=== PATIENT | male | born 1950 | race Caucasian/White ===

== ENCOUNTER 2016-08-20 18:33 | Inpatient (IN) | payer MEDICARE, OTHER ==
[~2016-08-20] VITALS: Ht 170.2 cm; Wt 124.8 kg
[~2016-08-20 18:33] MED LIST: ALBU6.7H INH; ASPI325T PO; DIPH2%T PO; LOPR50TA12 PO; TYLE3 PO; ZOCO40TA PO
[2016-08-20 18:34] VITALS: BP 144/77; PULSE 88; RESP 28; TEMP 102.1; O2SAT 95
[2016-08-20 20:01] VITALS: BP 133/65; PULSE 99; RESP 22; O2SAT 99
[2016-08-20] MEDS ORDERED: ZOCO40TA PO (20:03)
[2016-08-20] MEDS ORDERED: ALBU6.7H INH (20:03)
[2016-08-20] MEDS ORDERED: ASPI81CH CHEW (20:03)
[2016-08-20] MEDS ORDERED: cefTRIAXone INJ 2,000 MG in SODIUM CHLORIDE 0.9% INJ 100 ML IV STA (20:24)
[2016-08-20] MEDS ORDERED: AZITHROMYCIN INJ 500 MG in SODIUM CHLOR 0.9% 250 ML INJ 250 ML IV STA (20:24)
[2016-08-20] MEDS ORDERED: methylPREDNISolone SOD SUCC 125 MG/2 ML VIAL IV PUSH ONE (20:30)
[2016-08-20] MEDS ORDERED: SODIUM CHLOR 0.9% 1000 ML INJ 1,000 ML IV ONE (20:30)
[2016-08-20] MEDS ORDERED: ONDANSETRON HCL 4 MG/2 ML VIAL IV ONE (20:30)
[2016-08-20] MEDS ORDERED: ACETAMINOPHEN 325 MG TAB PO ONE (20:30)
--- NOTE | 2016-08-20 20:34 | PD ---
HPI Chief Complaint: Cold / Flu Symptoms Time Seen by Provider: 20:14 Travel History International Travel<30 days: No Contact w/Intl Traveler<30days: No Traveled to known affect area: No History of Present Illness HPI The patient is a 65 year old male who presents to the [facility] emergency department with a history of cough, congestion, frontal sinus pressure, sore throat, clear rhinorrhea that began yesterday. His symptoms rapidly evolved and worsened today. He reports that he began to feel short of breath. He does have a known history of COPD, however he has not used his rescue inhaler. The patient arrives with a fever with a MAXIMUM TEMPERATURE of 102.2. He reports he has had posttussive emesis approximately 6 times. He denies having any diarrhea. He denies having any nausea. He reports that he last moved his bowels yesterday. He reports that he quit smoking 30 years ago. The patient reports that he did receive his influenza vaccination and pneumonia vaccinations this year. He is followed for his primary care by the [facility]. He denies having any chest pain, however he does report having chest tightness with trying to take a deep breath. He denies having any abdominal pain. The patient on review of systems denies having any urinary symptoms or neurologic symptoms. [facility] Past Medical History Narrative Medical The patient's past medical history is significant for hyperlipidemia, COPD, history of chronic left foot pain, history of kidney stones. Heart Rhythm Problems: No Cardiac Catheterization: No Cardiovascular Problems: Yes (CURRENT CP) High Cholesterol: Yes Congestive Heart Failure: No Diabetes: No Kidney Stones: Yes Sleep Apnea: Yes (cpap) Past Surgical History Narrative Surgical The patient's past surgical history is significant for left foot surgery, kidney stone removal. Coronary Artery Bypass Graft: No Genitourinary Surgery: Yes (KIDNEY STONE REMOVED) Family History Family Myocardial Infarction: Yes (BROTHER) Social History Alcohol Use: No Tobacco Use: No (quit 30 years ago) Substance Use: No Allergies-Medications (Allergen,Severity, Reaction): Coded Allergies: Imodium (Verified Allergy, Unknown, 08/20/16) Reported Meds & Prescriptions Reported Meds & Active Scripts Active Reported Aspirin 81 Mg Chew 81 Mg CHEW DAILY Review of Systems Except as stated in HPI: all other systems reviewed are Neg General / Constitutional: Positive: Fever Eyes: No: Visual changes HENT: Positive: Headaches (over frontal sinus), Sore Throat, Rhinorrhea, Congestion, No: Neck Stiffness, Neck Pain Cardiovascular: Positive: Chest Pain or Discomfort (chest tightness), Dyspnea on exertion Respiratory: Positive: Cough, Shortness of Breath, Wheezing, Sneezing Gastrointestinal: Positive: Vomiting (posttussive emesis), No: Nausea, Diarrhea, Abdominal Pain, Hematemesis, Hematochezia, Constipation, Changes in Bowel Habits, Indigestion, Loss of Appetite Genitourinary: No: Dysuria Musculoskeletal: No: Pain Skin: No Rash Neurologic: No: Weakness, Focal Abnormalities, Change in Mentation, Slurred Speech, Sensory Disturbance Psychiatric: No: Depression, Mood Disorder Endocrine: No: Polydipsia Hematologic/Lymphatic: No: Easy Bruising Physical Exam Narrative General: The patient is a well-developed well-nourished male in no acute distress. Head and Neck exam: Head is normocephalic atraumatic. Eyes: EOMI, pupils are equal round and reactive to light. Nose: Midline septum with pink mucous membranes Mouth: Dentition unremarkable. Moist mucus membranes. Posterior oropharynx is erythematous. With uvula swelling noted, erythema. No exudate. No tonsillar hypertrophy. Uvula midline. Airway patent. Neck: No palpable lymphadenopathy. No nuchal rigidity. No thyromegaly. Cardiovascular: Regular rate and rhythm without murmurs, gallops, or rubs. Lungs: The patient has soft expiratory wheezes audible. The patient has scattered rhonchi with frequent productive sounding coughs. The patient's sputum at the bedside is noted to be clear to yellow. The patient has no accessory muscle use noted. No paroxysmal abdominal breathing. No tripoding. Abdomen: Soft, without tenderness to palpation in all 4 quadrants of the abdomen. No guarding, rebound, or rigidity. Normal bowel sounds are audible. No tenderness on palpation of McBurney's point. Extremities: No clubbing, cyanosis, or edema. 2+ pulses in all 4 extremities. No calf tenderness on palpation. Back: No costovertebral angle tenderness to palpation. Neurologic Exam: Grossly nonfocal. Skin Exam: No rash noted. Intact skin that is warm and dry. Data Data Last Documented VS Vital Signs Date Time Temp Pulse Resp B/P Pulse Ox O2 Delivery O2 Flow Rate FiO2 08/20/16 22:30 98.6 77 18 144/66 96 Nasal Cannula 2 Orders Electrocardiogram (08/20/16 20:24) Complete Blood Count With Diff (08/20/16 20:24) Comprehensive Metabolic Panel (08/20/16 20:24) Lactic Acid Sepsis Protocol (08/20/16 20:24) Lipase (08/20/16 20:24) Ckmb (Isoenzyme) Profile (08/20/16 20:24) Troponin I (08/20/16 20:24) Urinalysis - C+S If Indicated (08/20/16 20:24) Influenzae A/B Antigen (08/20/16 20:24) Blood Culture (08/20/16 20:24) Chest, Single Ap (08/20/16 20:24) Blood Glucose (08/20/16 20:24) Ecg Monitoring (08/20/16 20:24) Iv Access Insert/Monitor (08/20/16 20:24) Oximetry (08/20/16 20:24) Oxygen Administration (08/20/16 20:24) Ceftriaxone Inj (Rocephin Inj) (08/20/16 20:24) Azithromycin Inj (Zithromax Inj) (08/20/16 20:24) Sodium Chlor 0.9% 1000 Ml Inj (Ns 1000 M (08/20/16 20:30) Ondansetron Inj (Zofran Inj) (08/20/16 20:30) Methylprednisolone So Succ Inj (Solumedr (08/20/16 20:30) Albuterol-Ipratropium Neb (Duoneb Neb) (08/20/16 20:30) Group A Rapid Strep Screen (08/20/16 20:24) B-Type Natriuretic Peptide (08/20/16 20:24) C-Reactive Protein (Crp) (08/20/16 20:24) Acetaminophen (Tylenol) (08/20/16 20:30) Ct Soft Tiss Neck W Iv Cont (08/20/16 ) Iohexol 350 Inj (Omnipaque 350 Inj) (08/20/16 22:43) Admit Order (Ed Use Only) (08/20/16 22:50) Labs Laboratory Tests Test 08/20/16 5 20:25 20:36 White Blood Count 11.4 TH/MM3 Red Blood Count 4.81 MIL/MM3 Hemoglobin 14.7 GM/DL Hematocrit 42.9 % Mean Corpuscular Volume 89.3 FL Mean Corpuscular Hemoglobin 30.5 PG Mean Corpuscular Hemoglobin 34.1 % Concent Red Cell Distribution Width 13.5 % Platelet Count 135 TH/MM3 Mean Platelet Volume 8.7 FL Neutrophils (%) (Auto) 74.2 % Lymphocytes (%) (Auto) 12.5 % Monocytes (%) (Auto) 12.2 % Eosinophils (%) (Auto) 0.7 % Basophils (%) (Auto) 0.4 % Neutrophils # (Auto) 8.5 TH/MM3 Lymphocytes # (Auto) 1.4 TH/MM3 Monocytes # (Auto) 1.4 TH/MM3 Eosinophils # (Auto) 0.1 TH/MM3 Basophils # (Auto) 0.0 TH/MM3 CBC Comment DIFF FINAL Differential Comment Sodium Level 136 MEQ/L Potassium Level 3.9 MEQ/L Chloride Level 102 MEQ/L Carbon Dioxide Level 25.9 MEQ/L Anion Gap 8 MEQ/L Blood Urea Nitrogen 13 MG/DL Creatinine 1.27 MG/DL Estimat Glomerular Filtration 57 ML/MIN Rate Random Glucose 109 MG/DL Calcium Level 9.2 MG/DL Total Bilirubin 1.1 MG/DL Aspartate Amino Transf 18 U/L (AST/SGOT) Alanine Aminotransferase 29 U/L (ALT/SGPT) Alkaline Phosphatase 69 U/L Total Creatine Kinase 91 U/L Troponin I LESS THAN 0.02 NG/ML C-Reactive Protein 5.60 MG/DL B-Type Natriuretic Peptide 39 PG/ML Total Protein 7.9 GM/DL Albumin 4.2 GM/DL Lipase 83 U/L Lactic Acid Level 1.1 mmol/L MDM Medical Decision Making Medical Screen Exam Complete: Yes Emergency Medical Condition: Yes Medical Record Reviewed: Yes Interpretation(s) Last Impressions Chest X-Ray 08/20/162023 Signed Impressions: Service Date/Time: Saturday, August 20, 2016 20:46 - CONCLUSION: Bibasilar atelectasis. Conner Crump MD Neck CT 08/20/16 0000 Signed Impressions: Service Date/Time: Saturday, August 20, 2016 22:40 - CONCLUSION: There is soft tissue prominence and thickening of the subglottic trachea and aryepiglottic folds. No abscess. Conner Crump MD Differential Diagnosis Uvulitis, versus bronchitis, versus COPD exacerbation, versus pneumonia, versus sepsis Narrative Course During the course of the patients emergency department visit, the patients history, examination, and differential diagnosis were reviewed with the patient. The patient had IV access obtained and blood work sent for analysis. The patient was placed on a therapeutic recreation assistant with oximetry and blood pressure monitoring. An EKG was ordered. Blood cultures 2 were ordered, rapid strep was ordered. The patient had an EKG done on arrival that shows a sinus rhythm heart rate is 70, nonspecific T-wave abnormalities. T waves are inverted in V1 , V3, no acute ST segment elevation, T waves inverted in lead 3. QRS duration is 126 ms, QTC 406 ms. The patient was initially provided normal saline 1 L IV fluid bolus, Zofran 4 mg IV, Rocephin 2 g IV, Zithromax 500 IV. DuoNeb 2 will be administered. The patient will be given Solu-Medrol 125 mg IV. The patients laboratory studies were reviewed and remarkable for a white count 11.4, hemoglobin 14.7, platelets 135 neutrophils 74.2, monocytes 12.2, CMP is remarkable for glucose of 109, total bilirubin 1.1, CPK 91, troponin I less than 0.02, C-reactive protein 5.60, lipase 83, BNP is 39, lactic acid 1.1 Radiology studies were reviewed and remarkable for bibasilar atelectasis. CT of the soft tissues of the neck showed a soft tissue prominence and thickening of the subglottic trachea and area epiglottic folds, no abscesses. The patient on reexamination reports that he still is experiencing some shortness of breath. The patient continues to have a productive sounding cough with scattered rhonchi. The patient will be admitted to the hospital for continued IV fluids, IV steroids, nebulizer treatments every 4-6 hours. The patients results were discussed with the patient, including the plan of care. I explained that further testing and/ or monitoring is indicated based on the patients history, examination, and/ or laboratory findings. Therefore, I recommended admission for additional evaluation. The patient expressed understanding and was agreeable with this plan. The patient was admitted to the hospital in stable condition and sent to a bed under the care of the [facility] Hospitalist service. Physician Communication Physician Communication The patient's case will be discussed with Dr. Dietz regarding admission. The patient's case was discussed with her. She did agree to admit the patient for further evaluation and treatment at this time. Diagnosis Primary Impression: COPD exacerbation Additional Impressions: Uvular swelling Uvulitis Admitting Information Admitting Physician Requests: Marie Prasad MD August 20, 2016 20:34
[2016-08-20 20:35] VITALS: O2SAT 96
[2016-08-20] MEDS: RESP: ALBUTEROL 2.5 MG/IPRATROPIUM 0.5 MG NEB (SCH) INH ×2 (20:35→20:36)
[2016-08-20 20:40] VITALS: O2SAT 96
--- NOTE | 2016-08-20 20:51 | RADRPT ---
EXAM DATE/TIME: 08/20/2016 20:46 [facility] COMPARISON: CHEST SINGLE AP, May 11, 2014, 15:12. INDICATIONS : Short of breath. MEDICAL HISTORY : None. SURGICAL HISTORY : None. ENCOUNTER: Initial ACUITY: 2 days PAIN SCORE: 0/10 LOCATION: Bilateral chest FINDINGS: A single view of the chest demonstrates diminished lung volumes and bibasilar atelectasis. Heart norm al in size. Osseous structures are intact. CONCLUSION: Bibasilar atelectasis. Conner Crump MD on August 20, 2016 at 20:49 Board Certified Radiologist. This report was verified electronically.
[2016-08-20 20:57] LABS: AUTOMATED NEUTROPHIL # 8.5 TH/MM3 (1.8-7.7); BASOPHIL % 0.4 % (0.0-2.0); EOSINOPHIL # 0.1 TH/MM3 (0-0.4); EOSINOPHIL % 0.7 % (0.0-4.0); HEMATOCRIT 42.9 % (39.0-51.0); HEMO FLAGS DIFF FINAL; LYMPH % 12.5 % (9.0-44.0); LYMPHOCYTE # 1.4 TH/MM3 (1.0-4.8); MEAN CELL VOLUME 89.3 FL (80.0-100.0); MEAN CORPUSCULAR HEMOGLOBIN 30.5 PG (27.0-34.0); MEAN CORPUSCULAR HGB CONC 34.1 % (32.0-36.0); MONO % 12.2 % (0.0-8.0); NEUT % 74.2 % (16.0-70.0); PLATELET COUNT 135 TH/MM3 (150-450); RED BLOOD COUNT 4.81 MIL/MM3 (4.50-5.90); RED CELL DISTRIBUTION WIDTH 13.5 % (11.6-17.2); WHITE BLOOD COUNT 11.4 TH/MM3 (4.0-11.0)
[2016-08-20 21:18] LABS: ANION GAP 8 MEQ/L (5-15); AST (GOT) 18 U/L (15-37); BICARBONATE 25.9 MEQ/L (21.0-32.0); BLOOD UREA NITROGEN 13 MG/DL (7-18); CHLORIDE 102 MEQ/L (98-107); GLOMERULAR FILTRATION RATE 57 ML/MIN (>89); POTASSIUM 3.9 MEQ/L (3.5-5.1); SODIUM (NA) 136 MEQ/L (136-145)
[2016-08-20 21:23] LABS: ALKALINE PHOSPHATASE 69 U/L (45-117); ALT (GPT) 29 U/L (12-78); TOTAL BILIRUBIN ADULT 1.1 MG/DL (0.2-1.0)
[2016-08-20 21:31] LABS: CREATINE KINASE 91 U/L (39-308)
[2016-08-20 21:37] VITALS: BP 146/76; PULSE 90; RESP 16; O2SAT 97
[2016-08-20 22:30] VITALS: BP 144/66; PULSE 77; RESP 18; TEMP 98.6; O2SAT 96
[2016-08-20] MEDS ORDERED: IOHEXOL 350 MG/ML 10 ML VIAL (for RAD DIAG) IV ONE (22:43)
--- NOTE | 2016-08-20 23:05 | RADRPT ---
EXAM DATE/TIME: 08/20/2016 22:40 [facility] COMPARISON: No previous studies available for comparison. INDICATIONS : Swollen throat with fever. IV CONTRAST: 70 cc Omnipaque 350 (iohexol) IV RADIATION DOSE: 19.32 CTDIvol (mGy) MEDICAL HISTORY : Cardiovascular disease. Renal calculi. SURGICAL HISTORY : None. ENCOUNTER: Initial ACUITY: 1 day PAIN SCALE: 8/10 LOCATION: neck TECHNIQUE: Volumetric scanning of the neck was performed. Using automated exposure control and adjustment of th e mA and/or kV according to patient size, radiation dose was kept as low as reasonably achievable to obtain optimal diagnostic quality images. FINDINGS: NASOPHARYNX: The nasopharyngeal airway has a normal configuration. No mucosal thickening or mass is seen. OROPHARYNX: The intrinsic muscles of the tongue are symmetric. The tonsillar pillars are intact. The prevertebr al soft tissues are not thickened. LARYNX: There is soft tissue prominence and thickening of the subglottic trachea and aryepiglottic folds. No abscess. Prevertebral soft tissues are intact. PARAPHARYNGEAL: The parapharyngeal space is intact. SALIVARY GLANDS: The parotid and submandibular glands are intact. LYMPH NODES: No enlarged or necrotic-appearing nodes. THYROID: Homogeneous enhancement without evidence of nodule. BONES: Unremarkable. CONCLUSION: There is soft tissue prominence and thickening of the subglottic trachea and aryepiglottic folds. No abscess. Conner Crump MD on August 20, 2016 at 23:01 Board Certified Radiologist. This report was verified electronically.
[2016-08-21] VITALS (11 sets, daily range): BP systolic 114–151; BP diastolic 59–94; PULSE 68–88; RESP 17–20; TEMP 96.5–98.4; O2SAT 94–97
[2016-08-21] MEDS ORDERED: SODIUM CHLORIDE 0.9% FLUSH 10 ML FLUSH IV FLUSH PRN (00:30)
[2016-08-21] MEDS ORDERED: NALOXONE HCL 0.4 MG/ML AMP IV PRN (00:30)
[2016-08-21] MEDS ORDERED: RESP: ALBUTEROL 2.5 MG/IPRATROPIUM 0.5 MG NEB (PRN) NEB ×2 (00:30→14:15)
[2016-08-21 01:03] LABS: BLOOD, URINE NEG (NEG); GLUCOSE,URINE NEG (NEG); KETONE, URINE NEG (NEG); NITRITE,URINE NEG (NEG); PH, URINE 6.5 (5.0-8.5); URINE COLOR YELLOW (YELLW/STRAW)
[2016-08-21 01:05] LABS: COMMENT (UR) CATH-CULT NOT IND; CULTURE IF INDICATED CATH CULTURE NOT IND
[2016-08-21] MEDS: LEVOFLOXACIN 750 MG PREMIX INJ 150 ML IV SCH (01:47)
[2016-08-21] MEDS: RESP: ALBUTEROL 2.5 MG/IPRATROPIUM 0.5 MG NEB (SCH) NEB ×4 (02:53→21:31)
[2016-08-21] MEDS: SODIUM CHLORIDE 0.9% FLUSH 10 ML FLUSH IV FLUSH SCH ×2 (10:32→22:01)
[2016-08-21] MEDS: PANTOPRAZOLE SOD 40 MG DELAYED RELEASE TAB PO SCH (10:32)
--- NOTE | 2016-08-21 12:44 | HHI.HP ---
HPI Service [facility] Primary Care Physician [facility] Admission Diagnosis COPD exacerbation, bronchitis Diagnoses: Travel History International Travel<30 Days: No Contact w/Intl Traveler <30 Da: No Traveled to Known Affected Are: No Sepsis Criteria SIRS Criteria (2 or more): Temp > 100.9 or < 96.8, Heart rate over 90 Sepsis Criteria (SIRS+source): Infect source susp/known History of Present Illness 65-year-old male with past medical history of COPD and sleep apnea presented to the emergency room with complaint of very sore throat, wheezing, cough and phlegm since Saturday. Patient states that his had a sore throat since Saturday and was on antibiotics. He doesn't know which antibiotic she is taking. He states that his sore throat is so bad that time he drools all over and has trouble swallowing. He did have low-grade fever at home 100-101. He admits to chills but no nausea or vomiting, no burning with urination, no abdominal pain, he admits to wheezing and shortness of breath. He states that compared to yesterday he feels a little bit better but still feels sick. He tells me he uses a cane when ambulating long distances Review of Systems Except as stated in HPI: all other systems reviewed are Neg Past Family Social History Past Medical History COPD, sleep apnea Past Surgical History Fusion of the left foot, cyst removed on the left ankle, kidney stones Reported Medications Reported Meds & Active Scripts Active Reported Aspirin 81 Mg Chew 81 Mg CHEW DAILY Allergies: Coded Allergies: Imodium (Verified Allergy, Unknown, 08/20/16) *MDRO Multi-Drug Resistant Organism (Verified Adverse Reaction, Unknown, ) MRSA (wound)-03/13/10 Family History Mother of the stroke and father had throat cancer Social History Quit smoking in 1993. He started smoking in his 20s. He rarely drinks any alcohol about one beer a month. Denies any illegal drug use Physical Exam Vital Signs Vital Signs Date Time Temp Pulse Resp B/P Pulse Ox O2 Delivery O2 Flow Rate FiO2 08/21/16 12:00 96.5 71 18 114/59 95 08/21/16 09:01 97 Nasal Cannula 2.00 08/21/16 08:00 97.4 83 19 133/94 96 08/21/16 05:48 97.2 20 151/78 08/21/16 05:01 98.1 08/21/16 03:42 88 18 124/74 94 Nasal Cannula 2 08/21/16 00:36 71 18 138/68 97 Nasal Cannula 08/20/16 22:30 98.6 77 18 144/66 96 Nasal Cannula 2 08/20/16 21:37 90 16 146/76 97 Nasal Cannula 2 08/20/16 20:40 96 Nasal Cannula 2 08/20/16 20:40 96 Nasal Cannula 2 08/20/16 20:35 96 Nasal Cannula 2.00 08/20/16 20:01 99 22 133/65 99 Nasal Cannula 2 08/20/16 19:59 22 93 Nasal Cannula 08/20/16 18:34 102.1 88 28 144/77 95 Room Air Physical Exam GENERAL: This is a well-nourished, well-developed patient, in no apparent distress. Appears uncomfortable SKIN: No rashes, ecchymoses or lesions. Cool and dry. HEAD: Atraumatic. Normocephalic. No temporal or scalp tenderness. EYES: Pupils equal round and reactive. Extraocular motions intact. No scleral icterus. No injection or drainage. ENT: Nose without drainage. Throat petechia over the palate and some erythema noted.. Uvula midline. Airway patent. NECK: Trachea midline. No JVD or lymphadenopathy. Supple, nontender, no meningeal signs. CARDIOVASCULAR: Regular rate and rhythm without murmurs. RESPIRATORY: Expiratory wheezes auscultated. Crackles GASTROINTESTINAL: Abdomen soft, non-tender, nondistended. No guarding. MUSCULOSKELETAL: Extremities without edema. No calf tenderness. Negative Homans sign bilaterally. NEUROLOGICAL: Awake and alert. Cranial nerves II through XII intact. Motor and sensory grossly within normal limits. Five out of 5 muscle strength in all muscle groups. Normal speech. Laboratory Laboratory Tests Test 08/20/16 08/20/16 08/21/16 20:25 20:36 00:40 White Blood Count 11.4 Red Blood Count 4.81 Hemoglobin 14.7 Hematocrit 42.9 Mean Corpuscular Volume 89.3 Mean Corpuscular Hemoglobin 30.5 Mean Corpuscular Hemoglobin 34.1 Concent Red Cell Distribution Width 13.5 Platelet Count 135 Mean Platelet Volume 8.7 Neutrophils (%) (Auto) 74.2 Lymphocytes (%) (Auto) 12.5 Monocytes (%) (Auto) 12.2 Eosinophils (%) (Auto) 0.7 Basophils (%) (Auto) 0.4 Neutrophils # (Auto) 8.5 Lymphocytes # (Auto) 1.4 Monocytes # (Auto) 1.4 Eosinophils # (Auto) 0.1 Basophils # (Auto) 0.0 CBC Comment DIFF FINAL Differential Comment Sodium Level 136 Potassium Level 3.9 Chloride Level 102 Carbon Dioxide Level 25.9 Anion Gap 8 Blood Urea Nitrogen 13 Creatinine 1.27 Estimat Glomerular Filtration 57 Rate Random Glucose 109 Calcium Level 9.2 Total Bilirubin 1.1 Aspartate Amino Transf 18 (AST/SGOT) Alanine Aminotransferase 29 (ALT/SGPT) Alkaline Phosphatase 69 Total Creatine Kinase 91 Troponin I LESS THAN 0.02 C-Reactive Protein 5.60 B-Type Natriuretic Peptide 39 Total Protein 7.9 Albumin 4.2 Lipase 83 Lactic Acid Level 1.1 Urine Color YELLOW Urine Turbidity CLEAR Urine pH 6.5 Urine Specific [place] 1.014 Urine Protein NEG Urine Glucose (UA) NEG Urine Ketones NEG Urine Occult Blood NEG Urine Nitrite NEG Urine Bilirubin NEG Urine Urobilinogen LESS THAN 2.0 Urine Leukocyte Esterase NEG Urine RBC 2 Urine WBC 1 Microscopic Urinalysis Comment CATH-CULT NOT IND Date/Time Procedure Status Source Growth 08/20/16 20:36 Aerobic Blood Culture - Preliminary Resulted Blood Peripheral NO GROWTH IN 1 DAY 08/20/16 20:36 Anaerobic Blood Culture - Preliminary Resulted Blood Peripheral NO GROWTH IN 1 DAY 08/20/16 20:30 Influenza Types A,B Antigen (JOHANN) - Final Complete Nasal Aspirate NEGATIVE FOR FLU A AND B ANTIGEN.... 08/20/16 20:30 Group A Streptococcus Screen (JOHANN) - Final Complete Throat Pos For Grp A Strep Antigen Result Diagram: 08/20/16202408/20/162024 Imaging Last Impressions Chest X-Ray 08/20/162023 Signed Impressions: Service Date/Time: Saturday, August 20, 2016 20:46 - CONCLUSION: Bibasilar atelectasis. Conner Crump MD Neck CT 08/20/16 0000 Signed Impressions: Service Date/Time: Saturday, August 20, 2016 22:40 - CONCLUSION: There is soft tissue prominence and thickening of the subglottic trachea and aryepiglottic folds. No abscess. Conner Crump MD Assessment and Plan Assessment and Plan Meets Sepsis criteria: fever, tachycardia and source strep throat. See management below. COPD exacerbation: Wheezing on exam. DuoNeb scheduled and as needed. Receive a dose of Rocephin IV and azithromycin in the emergency room. He also received a dose of Solu-Medrol. I will continue with IV Solu-Medrol for now. chest x- ray personally reviewed by me and concerning for atelectasis vs infiltrates. encourage use of IS q1hr. continue azithromycin Strep throat: Strep was positive for group A strep. I will start him on amoxicillin 875 mg by mouth twice a day. lozenges prn, magic mouth wash prn. give scheduled ibuprofen 600mg po TID. Sleep apnea: stable. pt can have bring CPAP machine in hospital DVT proph: lovenox Code Status full Discussed Condition With patient Kaelyn Seth MD August 21, 2016 12:44
[2016-08-21] MEDS ORDERED: AMOXICILLIN 875 MG TAB PO ONE (14:00)
[2016-08-21] MEDS ORDERED: BENZOCAINE 6 MG/MENTHOL 10 MG LOZENGE BUCCAL PRN (14:00)
[2016-08-21] MEDS: IBUPROFEN 600 MG TAB PO SCH ×2 (14:15→22:00)
--- NOTE | 2016-08-21 15:18 | EKG ---
Date Performed: 08/20/2016 Time Performed: 20:38:08 PTAGE: 65 years EKG: Sinus rhythm POSSIBLE RIGHT VENTRICULAR CONDUCTION DELAY NONSPECIFIC T-WAVE ABNORMALITY BORDERLINE ECG Compared t o the PREVIOUS TRACING sinus rate has increased, nonspecific changes are new PREVIOUS TRACIN05/12/2014 02.22 DOCTOR: Kory Plunkett Interpretating Date/Time 08/21/2016 15:15:55
[2016-08-21] MEDS: methylPREDNISolone SOD SUCC 40 MG/1 ML VIAL IV PUSH SCH ×2 (15:23→22:01)
[2016-08-21] MEDS: ENOXAPARIN SODIUM 40 MG/0.4 ML SYRINGE SQ SCH (15:23)
[2016-08-21] MEDS: NYSTAT/DIPHENHY/LIDO MOUTHWASH (Adult) 120ML SWISH-SWAL SCH ×2 (18:59→22:04)
[2016-08-21] MEDS: ACETAMINOPHEN 325 MG TAB PO PRN (18:59)
[2016-08-21] MEDS ORDERED: RESP: ALBUTEROL 2.5 MG/IPRATROPIUM 0.5 MG NEB (SCH) NEB (20:00)
[2016-08-21] MEDS ORDERED: AZITHROMYCIN 250 MG TAB PO SCH (20:00)
[2016-08-21] MEDS: AMOXICILLIN 875 MG TAB PO SCH (22:02)
[2016-08-22] VITALS (8 sets, daily range): BP systolic 106–149; BP diastolic 55–86; PULSE 67–94; RESP 17–20; TEMP 97.5–98; O2SAT 88–98
[2016-08-22] MEDS: LEVOFLOXACIN 750 MG PREMIX INJ 150 ML IV SCH (00:35)
[2016-08-22] MEDS: IBUPROFEN 600 MG TAB PO SCH (06:00)
[2016-08-22] MEDS: methylPREDNISolone SOD SUCC 40 MG/1 ML VIAL IV PUSH SCH (06:54)
[2016-08-22] MEDS: RESP: ALBUTEROL 2.5 MG/IPRATROPIUM 0.5 MG NEB (SCH) NEB ×4 (07:57→20:36)
[2016-08-22 08:06] LABS: AUTOMATED NEUTROPHIL # 13.3 TH/MM3 (1.8-7.7); BASOPHIL % 0.1 % (0.0-2.0); HEMATOCRIT 38.8 % (39.0-51.0); HEMO FLAGS DIFF FINAL; LYMPH % 4.9 % (9.0-44.0); LYMPHOCYTE # 0.7 TH/MM3 (1.0-4.8); MEAN CELL VOLUME 89.1 FL (80.0-100.0); MEAN CORPUSCULAR HEMOGLOBIN 31.1 PG (27.0-34.0); MEAN CORPUSCULAR HGB CONC 34.9 % (32.0-36.0); PLATELET COUNT 149 TH/MM3 (150-450); RED BLOOD COUNT 4.36 MIL/MM3 (4.50-5.90); RED CELL DISTRIBUTION WIDTH 13.7 % (11.6-17.2); WHITE BLOOD COUNT 14.7 TH/MM3 (4.0-11.0)
[2016-08-22 08:33] LABS: BICARBONATE 22.6 MEQ/L (21.0-32.0); POTASSIUM 4.2 MEQ/L (3.5-5.1)
[2016-08-22] MEDS ORDERED: AZITHROMYCIN 250 MG TAB PO SCH ×2 (09:00→16:00)
[2016-08-22] MEDS ORDERED: NON-FORMULARY DRUG (Simvastatin (Zocor) 40 MG) PO SCH (09:00)
[2016-08-22] MEDS: PRAVASTATIN SOD 80 MG TAB PO SCH (09:01)
[2016-08-22] MEDS: PANTOPRAZOLE SOD 40 MG DELAYED RELEASE TAB PO SCH (09:02)
[2016-08-22] MEDS: AMOXICILLIN 875 MG TAB PO SCH ×2 (09:03→20:36)
[2016-08-22] MEDS: ACETAMINOPHEN 325 MG TAB PO PRN ×2 (09:04→18:55)
[2016-08-22] MEDS: NYSTAT/DIPHENHY/LIDO MOUTHWASH (Adult) 120ML SWISH-SWAL SCH ×4 (09:04→20:36)
[2016-08-22] MEDS: SODIUM CHLORIDE 0.9% FLUSH 10 ML FLUSH IV FLUSH SCH ×2 (09:06→20:36)
[2016-08-22] MEDS ORDERED: MAGNESIUM HYDROXIDE SUSP 30 ML CUP PO PRN (12:00)
[2016-08-22] MEDS ORDERED: BACTOIN EACH NARE (12:05)
[2016-08-22] MEDS ORDERED: AMOX875T PO (12:05)
[2016-08-22] MEDS ORDERED: SENN1TAB PO (12:05)
[2016-08-22] MEDS ORDERED: PRED20 PO (12:05)
[2016-08-22] MEDS ORDERED: MAGICADU2 SWISH-SWAL (12:05)
--- NOTE | 2016-08-22 12:22 | HHI.PR ---
Subjective Remarks Follow-up COPD exacerbation and strep throat. Improving shortness of breath and throat pain. Tolerating room air. He wants to go home tomorrow. Discussed with RN, refusing ibuprofen states it upsets his stomach. Objective Vitals Vital Signs Date Time Temp Pulse Resp B/P Pulse Ox O2 Delivery O2 Flow Rate FiO2 08/22/16 08:02 95 Nasal Cannula 2.00 08/22/16 08:00 97.8 88 18 121/72 94 08/22/16 05:28 97.5 67 17 117/67 94 08/22/16 00:38 98.0 69 17 106/55 96 08/21/16 20:16 98.4 81 17 120/64 95 08/21/16 20:00 79 08/21/16 16:33 95 Nasal Cannula 2.00 08/21/16 16:00 98.2 68 20 133/68 95 08/21/16 12:00 96.5 71 18 114/59 95 I/O 08/21/16 08/21/16 08/21/16 08/22/16 08/22/16 08/22/16 07:00 15:00 23:00 07:00 15:00 23:00 Intake Total 480 ml 480 ml Output Total 400 ml Balance -400 ml 480 ml 480 ml Intake Oral 480 ml 480 ml Output Urine Total 400 ml # Voids 1 3 6 # Bowel Movements 0 0 Result Diagram: 08/22/16 0756 08/22/16 0756 Imaging Last Impressions Chest X-Ray 08/20/162023 Signed Impressions: Service Date/Time: Saturday, August 20, 2016 20:46 - CONCLUSION: Bibasilar atelectasis. Conner Crump MD Neck CT 08/20/16 0000 Signed Impressions: Service Date/Time: Saturday, August 20, 2016 22:40 - CONCLUSION: There is soft tissue prominence and thickening of the subglottic trachea and aryepiglottic folds. No abscess. Conner Crump MD Objective Remarks GENERAL: This is a well-nourished, well-developed patient, in no apparent distress. SKIN: No rashes, ecchymoses or lesions. Cool and dry. HEAD: Atraumatic. Normocephalic. No temporal or scalp tenderness. EYES: Pupils equal round and reactive. Extraocular motions intact. No scleral icterus. No injection or drainage. ENT: Nose without drainage. Throat petechia over the palate and some erythema noted.. Uvula midline. Airway patent. NECK: Trachea midline. No JVD or lymphadenopathy. Supple, nontender, no meningeal signs. CARDIOVASCULAR: Regular rate and rhythm without murmurs. RESPIRATORY: Clear lungs GASTROINTESTINAL: Abdomen soft, non-tender, nondistended. No guarding. MUSCULOSKELETAL: Extremities without edema. No calf tenderness. Negative Homans sign bilaterally. NEUROLOGICAL: Awake and alert. Cranial nerves II through XII intact. Motor and sensory grossly within normal limits. Five out of 5 muscle strength in all muscle groups. Normal speech. Procedures none A/P Problem List: (1) COPD exacerbation ICD Code: J44.1 Status: Acute Assessment and Plan Meets Sepsis criteria: fever, tachycardia and source strep throat. See management below. COPD exacerbation: Improving switch to by mouth prednisone, continue Zithromax and discontinue Levaquin. Tinea nebulizations. Increase activity. Strep throat: Strep was positive for group A strep. Continue amoxicillin 875 mg by mouth twice a day. lozenges prn, magic mouth wash prn. Refused ibuprofen 600mg po TID. Sleep apnea: stable. pt can have bring CPAP machine in hospital Leukocytosis likely secondary to steroid use. Clinically he is stable. Constipation. Start Veronika-Colace DVT proph: lovenox Discharge Planning Possible discharge in the morning Mika Hutchison MD August 22, 2016 12:00
--- NOTE | 2016-08-22 12:22 | HHI.DCPOC ---
Discharge Care Plan Diagnosis: (1) COPD exacerbation Your Health Problems Are: Difficulty with ADL Exercise Tolerance Goals to Promote Your Health * To prevent worsening of your condition and complications * To maintain your health at the optimal level Directions to Meet Your Goals Take your medications as prescribed Follow your dietary instruction Follow activity as directed Keep your appointments as scheduled Take your immunizations and boosters as scheduled If your symptoms worsen call your PCP, if no PCP go to Urgent Care Center or Emergency Room Smoking is Dangerous to Your Health. Avoid second hand smoke Call the 24-hour hour crisis hotline for domestic abuse at Mika Hutchison MD August 22, 2016 12:05
[2016-08-22] MEDS: DOCUSATE SODIUM 50 MG/SENNA 8.6 MG TAB PO SCH ×2 (12:37→20:36)
[2016-08-22] MEDS: MUPIROCIN 2% OINT 1 APPLIC/GM SYR EACH NARE SCH ×2 (12:37→20:36)
[2016-08-22] MEDS: predniSONE 20 MG TAB PO SCH (12:37)
[2016-08-22] MEDS: ENOXAPARIN SODIUM 40 MG/0.4 ML SYRINGE SQ SCH (16:26)
[2016-08-23] VITALS: BP 127/70; PULSE 78; RESP 20; TEMP 97.7; O2SAT 94
[2016-08-23 04:00] VITALS: BP 141/71; PULSE 70; RESP 20; TEMP 97.3; O2SAT 96
[2016-08-23 08:00] VITALS: BP 147/82; PULSE 78; RESP 19; TEMP 97.1; O2SAT 95
[2016-08-23 08:30] VITALS: O2SAT 95
[2016-08-23] MEDS: RESP: ALBUTEROL 2.5 MG/IPRATROPIUM 0.5 MG NEB (SCH) NEB (08:31)
[2016-08-23] MEDS ORDERED: ASPIRIN 81 MG CHEW TAB CHEW SCH (09:00)
[2016-08-23] MEDS: SODIUM CHLORIDE 0.9% FLUSH 10 ML FLUSH IV FLUSH SCH (09:28)
[2016-08-23] MEDS: DOCUSATE SODIUM 50 MG/SENNA 8.6 MG TAB PO SCH (09:29)
[2016-08-23] MEDS: PRAVASTATIN SOD 80 MG TAB PO SCH (09:29)
[2016-08-23] MEDS: PANTOPRAZOLE SOD 40 MG DELAYED RELEASE TAB PO SCH (09:29)
[2016-08-23] MEDS: predniSONE 20 MG TAB PO SCH (09:29)
[2016-08-23] MEDS: MUPIROCIN 2% OINT 1 APPLIC/GM SYR EACH NARE SCH (09:30)
[2016-08-23] MEDS: NYSTAT/DIPHENHY/LIDO MOUTHWASH (Adult) 120ML SWISH-SWAL SCH (09:30)
[2016-08-23] MEDS ORDERED: LIDOCAINE VISCOUS 2% SOLN 15 ML UDC SWISH-SWAL PRN (09:30)
[2016-08-23] MEDS: AMOXICILLIN 875 MG TAB PO SCH (09:30)
--- NOTE | 2016-08-23 09:30 | HHI.PR ---
Subjective Remarks Follow-up COPD and strep throat. Denies shortness of breath tolerating room air. Still complaining of sore throat able to tolerate by mouth. He wants to go home. Discussed with RN Objective Vitals Vital Signs Date Time Temp Pulse Resp B/P Pulse Ox O2 Delivery O2 Flow Rate FiO2 08/23/16 08:30 95 21 08/23/16 08:00 97.1 78 19 147/82 95 08/23/16 04:00 97.3 70 20 141/71 96 08/23/16 00:00 97.7 78 20 127/70 94 08/22/16 20:36 92 21 08/22/16 20:00 97.5 77 20 149/80 98 08/22/16 19:52 18 08/22/16 16:00 97.5 88 18 135/86 88 08/22/16 12:00 97.9 94 17 142/81 93 I/O 08/22/16 08/22/16 08/22/16 08/23/16 08/23/16 08/23/16 06:59 14:59 22:59 06:59 14:59 22:59 Intake Total 480 ml 480 ml 720 ml 360 ml Balance 480 ml 480 ml 720 ml 360 ml Intake Oral 480 ml 480 ml 720 ml 360 ml # Voids 6 3 1 1 # Bowel Movements 0 1 Result Diagram: 08/22/16 0756 08/22/16 0756 Imaging Last Impressions Chest X-Ray 08/20/162023 Signed Impressions: Service Date/Time: Saturday, August 20, 2016 20:46 - CONCLUSION: Bibasilar atelectasis. Conner Crump MD Neck CT 08/20/16 0000 Signed Impressions: Service Date/Time: Saturday, August 20, 2016 22:40 - CONCLUSION: There is soft tissue prominence and thickening of the subglottic trachea and aryepiglottic folds. No abscess. Conner Crump MD Objective Remarks GENERAL: This is a well-nourished, well-developed patient, in no apparent distress. SKIN: No rashes, ecchymoses or lesions. Cool and dry. HEAD: Atraumatic. Normocephalic. No temporal or scalp tenderness. EYES: Pupils equal round and reactive. Extraocular motions intact. No scleral icterus. No injection or drainage. ENT: Nose without drainage. Throat is clear Uvula midline. Airway patent. NECK: Trachea midline. No JVD or lymphadenopathy. Supple, nontender, no meningeal signs. CARDIOVASCULAR: Regular rate and rhythm without murmurs. RESPIRATORY: Clear lungs GASTROINTESTINAL: Abdomen soft, non-tender, nondistended. No guarding. MUSCULOSKELETAL: Extremities without edema. No calf tenderness. Negative Homans sign bilaterally. NEUROLOGICAL: Awake and alert. Cranial nerves II through XII intact. Motor and sensory grossly within normal limits. Five out of 5 muscle strength in all muscle groups. Normal speech. Procedures none A/P Problem List: (1) COPD exacerbation ICD Code: J44.1 Status: Acute Assessment and Plan Sepsis criteria: fever, tachycardia and source strep throat. Resolved COPD exacerbation: Improved continue prednisone and Zithromax. Continue nebulizations. Increase activity. Strep throat: Strep was positive for group A strep. Continue amoxicillin 875 mg by mouth twice a day. lozenges prn, magic mouth wash prn. Refused ibuprofen 600mg po TID. Sleep apnea: stable. pt can have bring CPAP machine in hospital Leukocytosis likely secondary to steroid use. Clinically he is stable. Constipation. Continue Veronika-Colace DVT proph: lovenox Discharge Planning Stable for discharge Mika Hutchison MD August 23, 2016 09:30
--- NOTE | 2016-08-23 09:32 | HHI.DS ---
Discharge Summary Admission Date August 20, 2016 at 22:52 Discharge Date: August 23, 2016 Admitting Diagnosis COPD exacerbation, bronchitis (1) COPD exacerbation ICD Code: J44.1 Diagnosis: Principal Procedures none Brief History - From Admission 65-year-old male with past medical history of COPD and sleep apnea presented to the emergency room with complaint of very sore throat, wheezing, cough and phlegm since Saturday. Patient states that his had a sore throat since Saturday and was on antibiotics. He doesn't know which antibiotic she is taking. He states that his sore throat is so bad that time he drools all over and has trouble swallowing. He did have low-grade fever at home 100-101. He admits to chills but no nausea or vomiting, no burning with urination, no abdominal pain, he admits to wheezing and shortness of breath. He states that compared to yesterday he feels a little bit better but still feels sick. He tells me he uses a cane when ambulating long distances CBC/BMP: 08/22/16 0756 08/22/16 0756 Significant Findings Laboratory Tests Test 08/20/16 08/22/16 20:25 07:56 White Blood Count 11.4 TH/MM3 14.7 TH/MM3 (4.0-11.0) (4.0-11.0) Platelet Count 135 TH/MM3 149 TH/MM3 (150-450) (150-450) Neutrophils (%) (Auto) 74.2 % 90.0 % (16.0-70.0) (16.0-70.0) Monocytes (%) (Auto) 12.2 % (0.0-8.0) Neutrophils # (Auto) 8.5 TH/MM3 13.3 TH/MM3 (1.8-7.7) (1.8-7.7) Monocytes # (Auto) 1.4 TH/MM3 (0-0.9) Estimat Glomerular Filtration 57 ML/MIN (>89) 64 ML/MIN (>89) Rate Random Glucose 109 MG/DL 177 MG/DL (74-106) (74-106) Total Bilirubin 1.1 MG/DL (0.2-1.0) Troponin I LESS THAN 0.02 NG/ML (0.02-0.05) C-Reactive Protein 5.60 MG/DL (0.00-0.30) Red Blood Count 4.36 MIL/MM3 (4.50-5.90) Hematocrit 38.8 % (39.0-51.0) Lymphocytes (%) (Auto) 4.9 % (9.0-44.0) Lymphocytes # (Auto) 0.7 TH/MM3 (1.0-4.8) Blood Urea Nitrogen 21 MG/DL (7-18) Imaging Last Impressions Chest X-Ray 08/20/162023 Signed Impressions: Service Date/Time: Saturday, August 20, 2016 20:46 - CONCLUSION: Bibasilar atelectasis. Conner Crump MD Neck CT 08/20/16 0000 Signed Impressions: Service Date/Time: Saturday, August 20, 2016 22:40 - CONCLUSION: There is soft tissue prominence and thickening of the subglottic trachea and aryepiglottic folds. No abscess. Conner Crump MD PE at Discharge GENERAL: This is a well-nourished, well-developed patient, in no apparent distress. SKIN: No rashes, ecchymoses or lesions. Cool and dry. HEAD: Atraumatic. Normocephalic. No temporal or scalp tenderness. EYES: Pupils equal round and reactive. Extraocular motions intact. No scleral icterus. No injection or drainage. ENT: Nose without drainage. Throat is clear Uvula midline. Airway patent. NECK: Trachea midline. No JVD or lymphadenopathy. Supple, nontender, no meningeal signs. CARDIOVASCULAR: Regular rate and rhythm without murmurs. RESPIRATORY: Clear lungs GASTROINTESTINAL: Abdomen soft, non-tender, nondistended. No guarding. MUSCULOSKELETAL: Extremities without edema. No calf tenderness. Negative Homans sign bilaterally. NEUROLOGICAL: Awake and alert. Cranial nerves II through XII intact. Motor and sensory grossly within normal limits. Five out of 5 muscle strength in all muscle groups. Normal speech. Hospital Course Sepsis criteria: fever, tachycardia and source strep throat. Resolved COPD exacerbation: Improved continue prednisone and Zithromax. Continue nebulizations. Increase activity. Strep throat: Strep was positive for group A strep. Continue amoxicillin 875 mg by mouth twice a day. lozenges prn, magic mouth wash prn. Refused ibuprofen 600mg po TID. Sleep apnea: stable. pt can have bring CPAP machine in hospital Leukocytosis likely secondary to steroid use. Clinically he is stable. Constipation. Continue Veronika-Colace DVT proph: lovenox Pt Condition on Discharge: Stable Discharge Disposition: Discharge Home Discharge Time: > 30 minutes Discharge Instructions DIET: Follow Instructions for: Heart Healthy Diet Activities you can perform: Regular-No Restrictions Activities to Avoid: Driving Follow up Referrals: PCP Follow-up - 1 Week New Medications: Amoxicillin (Amoxicillin) 875 Mg Tab 875 MG PO BID Infection #10 Ref 0 TAB Mupirocin Nasal Oint (Bactroban Nasal Oint) 2% Oint 1 APPLIC EACH NARE BID Infection #1 TUBE Wjbbykav-Dlzkvsbsttuxcka-Myygzymjy Liq (Magic Mouthwash Adult Liq) 120 Ml Susp 10 ML SWISH-SPIT QID Infection #180 ML Prednisone (Prednisone) 20 Mg Tab 40 MG PO DAILY Control Inflammation #3 TAB Sennosides-Docusate Sodium (Senna Plus 8.6-50 mg) 1 Tab Tab 2 TAB PO BID Prevent Constipation #30 TAB Continued Medications: Albuterol 6.7 GM Inh (Proventil Hfa 6.7 GM Inh) 90 Mcg/Act Aer 2 PUFF INH Q4-6H PRN SHORTNESS OF BREATH #1 Ref 0 INHALER Aspirin (Aspirin) 81 Mg Chew 81 MG CHEW DAILY Ref 0 TAB Simvastatin (Zocor) 40 Mg Tab 40 MG PO DAILY Cholesterol Management #30 Ref 0 TAB Mika Hutchison MD August 23, 2016 09:32
[2016-08-23] MEDS ORDERED: MAGICADU2 SWISH-SPIT (09:33)
[2016-08-23] MEDS: ACETAMINOPHEN 325 MG TAB PO PRN (09:34)
[2016-08-23] MEDS ORDERED: AZITHROMYCIN 250 MG TAB PO ONE (10:00)
[2016-08-23 12:00] VITALS: BP 147/79; PULSE 82; RESP 17; TEMP 96.9; O2SAT 93
== END 2016-08-23 13:18 | disposition home or self-care (01) | DRG 872 ==
LOC: NEPE 18:33 → NEDA 22:51 → OBSVTOIN 22:52 → UNDOADMOB 22:52 → INTOOBSV 22:52 → NEDH 08-21 03:56 → NEDA 08-21 03:56 → NEDH 08-21 05:20 → N05B 08-21 05:20 → OBSVTOIN 08-21 14:11 → UNDODISOB 08-23 13:18
PROVIDERS: ADMIT Internal Medicine; ATTEND Internal Medicine
DX: A41.9 Sepsis, unspecified organism (principal); J44.1 Chronic obstructive pulmonary disease with (acute) exacerbation; J02.0 Streptococcal pharyngitis; G47.30 Sleep apnea, unspecified; K59.00 Constipation, unspecified; Z87.891 Personal history of nicotine dependence
CPT/HCPCS: 70491; 71010; 80048; 80053; 81001; 82550; 83605; 83690; 83880; 84484; 85025; 86140; 87040; 87641; 87804; 87880; 93005; 94150; 94640; 94664; J0456; J0696; J1650; J1956; J2405; J2920; J2930; J7030; J7050; J7512; Q9967